=== PATIENT | female | born 1980 | race Caucasian/White ===

== ENCOUNTER 2018-12-28 08:16 | Inpatient (IN) | payer MEDICAID ==
[2018-12-28] MEDS: LACTATED RINGER'S 1,000 ML IV ×3 (08:20→16:20)
[2018-12-28] MEDS ORDERED: METHYLERGONOVINE 0.2 MG INJ IM ×2 (08:30→16:00)
[2018-12-28] MEDS ORDERED: CEFAZOLIN 2 GM/50 ML (PMX) 50 ML IVPB (08:30)
[2018-12-28] MEDS ORDERED: MISOPROSTOL 200 MCG TAB PR ×2 (08:30→16:00)
[2018-12-28] MEDS ORDERED: CARBOPROST 250 MCG INJ IM ×2 (08:30→16:00)
[2018-12-28] MEDS ORDERED: CEFAZOLIN 3 GM in DEXTROSE 5% 100 ML IV (09:00)
[2018-12-28] MEDS ORDERED: morphine SULFATE/PF (10 MG/10 ML) INJ ×2 (09:12→11:20)
[2018-12-28] MEDS ORDERED: FENTAnyl 50 MCG/ML VIAL (09:12)
[2018-12-28 09:15] LABS: ADD MAN DIFF? NO
[2018-12-28 09:18] LABS: WHITE BLOOD COUNT 8.5 10^3/ul (4.8-10.8)
[2018-12-28 09:18] LABS: BASOPHILS % 0.1 % (0.0-2.0); EOSINOPHILS # 0.2 10^3/ul (0.0-0.5); EOSINOPHILS % 2.2 % (0.0-7.0); HEMATOCRIT 38.4 % (37.0-47.0); HEMOGLOBIN 12.7 g/dl (12.0-16.0); LYMPHOCYTES # 1.9 10^3/ul (0.8-2.9); LYMPHOCYTES % 21.7 % (15.0-51.0); MEAN CORPUSCULAR HEMOGLOBIN 28.7 pg (29.0-33.0); MEAN CORPUSCULAR HGB CONC 33.1 g/dl (32.0-37.0); MEAN CORPUSCULAR VOLUME 86.9 fl (82.0-101.0); MEAN PLATELET VOLUME 9.2 fl (7.4-10.4); MONOCYTE # 0.6 10^3/ul (0.3-0.9); MONOCYTES % 6.5 % (0.0-11.0); NEUTROPHIL # 5.9 10^3/ul (1.6-7.5); PLATELET COUNT 252 10^3/UL (140-415); RED BLOOD COUNT 4.42 10^6/ul (4.20-5.40); RED CELL DISTRIBUTION WIDTH 13.6 % (11.5-14.5)
[2018-12-28 09:36] LABS: INR 0.86; PROTIME 11.8 Sec (11.9-14.9); PT RATIO 0.9
[2018-12-28 09:37] LABS: PARTIAL THROMBOPLASTIN TIME 27.1 Sec (23.0-35.0)
[2018-12-28] MEDS ORDERED: PHENYLephrine (100 MCG/ML) 10ML SYG (09:58)
[2018-12-28] MEDS ORDERED: ONDANSETRON 4 MG INJ ×2 (09:58→11:21)
[2018-12-28] MEDS ORDERED: DEXAMETHASONE 4 MG/ML 1 ML INJ ×2 (09:58→11:20)
[2018-12-28] MEDS ORDERED: HYDROmorphONE 0.5 MG/0.5 ML SYG IV ×2 (12:00)
[2018-12-28] MEDS ORDERED: DIPHENHYDRAMINE 50 MG INJ IV (12:00)
[2018-12-28] MEDS ORDERED: NALOXONE (0.4 MG/ML) INJ IV (12:00)
[2018-12-28] MEDS ORDERED: ONDANSETRON 4 MG INJ IV (12:00)
[2018-12-28] MEDS ORDERED: ZOLPIDEM 5 MG TAB PO (12:00)
[2018-12-28 12:04] LABS: HEPATITIS B SURFACE ANTIGEN NEGATIVE (NEGATIVE)
[2018-12-28] MEDS: OXYTOCIN 30 UNITS/LR 500 ML IV ×2 (12:55→16:39)
[2018-12-28 15:18] LABS: RAPID PLASMA REAGIN NONREACTIVE (NR)
[2018-12-28] MEDS ORDERED: NACL 0.9% 3 ML SYG IV (16:00)
[2018-12-28] MEDS ORDERED: NA PHOSPHATE/BIPHOS 133 ML ENEMA PR (16:00)
[2018-12-28] MEDS ORDERED: OXYTOCIN 30 UNITS/LR 500 ML IV (16:00)
[2018-12-28] MEDS: KETOROLAC 30 MG INJ IV (16:37)
[2018-12-29] MEDS: LACTATED RINGER'S 1,000 ML IV ×3 (00:20→16:20)
[2018-12-29] MEDS: OXYTOCIN 30 UNITS/LR 500 ML IV (02:49)
[2018-12-29] MEDS: KETOROLAC 30 MG INJ IV ×2 (03:59→10:17)
[2018-12-29 09:45] LABS: ADD MAN DIFF? NO
[2018-12-29 09:49] LABS: BASOPHILS % 0.1 % (0.0-2.0); EOSINOPHILS # 0.1 10^3/ul (0.0-0.5); EOSINOPHILS % 0.9 % (0.0-7.0); HEMATOCRIT 32.4 % (37.0-47.0); HEMOGLOBIN 10.6 g/dl (12.0-16.0); LYMPHOCYTES # 2.7 10^3/ul (0.8-2.9); LYMPHOCYTES % 26.2 % (15.0-51.0); MEAN CORPUSCULAR HGB CONC 32.7 g/dl (32.0-37.0); MEAN CORPUSCULAR VOLUME 88.5 fl (82.0-101.0); MEAN PLATELET VOLUME 9.2 fl (7.4-10.4); MONOCYTE # 0.9 10^3/ul (0.3-0.9); MONOCYTES % 9.3 % (0.0-11.0); NEUTROPHIL # 6.4 10^3/ul (1.6-7.5); NEUTROPHILS % 62.9 % (39.0-77.0); PLATELET COUNT 225 10^3/UL (140-415); RED BLOOD COUNT 3.66 10^6/ul (4.20-5.40); RED CELL DISTRIBUTION WIDTH 13.2 % (11.5-14.5)
[2018-12-29 09:49] LABS: WHITE BLOOD COUNT 10.1 10^3/ul (4.8-10.8)
[2018-12-29] MEDS: LANOLIN HPA 1 PKT TOP (10:17)
[2018-12-29] MEDS: HYDROCODONE/APAP (5/325) TAB PO (13:35)
[2018-12-29] MEDS: IBUPROFEN 800 MG TAB PO ×2 (14:00→17:35)
[2018-12-30] MEDS: LACTATED RINGER'S 1,000 ML IV (01:20)
[2018-12-30] MEDS: IBUPROFEN 800 MG TAB PO ×3 (05:44→21:24)
[2018-12-30] MEDS: HYDROCODONE/APAP (5/325) TAB PO (10:40)
[2018-12-31] MEDS: IBUPROFEN 800 MG TAB PO ×3 (06:16→22:09)
[2018-12-31] MEDS: MEASLES,MUMPS,RUBELLA VACCINE INJ SC* (09:00)
[2018-12-31] MEDS: HYDROCODONE/APAP (5/325) TAB PO (12:40)
[2018-12-31 15:27] LABS: ADD MAN DIFF? NO
[2018-12-31 15:29] LABS: WHITE BLOOD COUNT 7.4 10^3/ul (4.8-10.8)
[2018-12-31 15:30] LABS: BASOPHILS % 0.3 % (0.0-2.0); EOSINOPHILS # 0.3 10^3/ul (0.0-0.5); EOSINOPHILS % 3.8 % (0.0-7.0); HEMATOCRIT 34.4 % (37.0-47.0); HEMOGLOBIN 11.3 g/dl (12.0-16.0); LYMPHOCYTES # 2.2 10^3/ul (0.8-2.9); MEAN CORPUSCULAR HEMOGLOBIN 29.3 pg (29.0-33.0); MEAN CORPUSCULAR HGB CONC 32.8 g/dl (32.0-37.0); MEAN CORPUSCULAR VOLUME 89.1 fl (82.0-101.0); MEAN PLATELET VOLUME 8.6 fl (7.4-10.4); MONOCYTE # 0.6 10^3/ul (0.3-0.9); MONOCYTES % 7.9 % (0.0-11.0); NEUTROPHIL # 4.3 10^3/ul (1.6-7.5); NEUTROPHILS % 57.6 % (39.0-77.0); PLATELET COUNT 269 10^3/UL (140-415); RED BLOOD COUNT 3.86 10^6/ul (4.20-5.40); RED CELL DISTRIBUTION WIDTH 13.3 % (11.5-14.5)
[2018-12-31 15:50] LABS: INR 0.91; PROTIME 12.4 Sec (11.9-14.9)
[2018-12-31 15:51] LABS: PARTIAL THROMBOPLASTIN TIME 27.3 Sec (23.0-35.0)
[2018-12-31 15:53] LABS: ALANINE AMINOTRANSFERASE 25 IU/L (13-69); ALBUMIN 3.4 g/dl (3.3-4.9); ALBUMIN/GLOBULIN RATIO 0.97; ALKALINE PHOSPHATASE 105 IU/L (42-121); ANION GAP 10 (5-13); ASPARTATE AMINO TRANSFERASE 41 IU/L (15-46); BILIRUBIN,INDIRECT 0.2 mg/dl (0-1.1); BILIRUBIN,TOTAL 0.2 mg/dl (0.2-1.3); BLOOD UREA NITROGEN 7 mg/dl (7-20); CALCIUM 9.2 mg/dl (8.4-10.2); CARBON DIOXIDE 27 mmol/L (21-31); CHLORIDE 102 mmol/L (97-110); CREATININE 0.62 mg/dl (0.44-1.00); Estimated GFR > 60 mL/min (>60); GLUCOSE 91 mg/dl (70-220); POTASSIUM 4.2 mmol/L (3.5-5.1); SODIUM 139 mmol/L (135-144); TOTAL PROTEIN 6.9 g/dl (6.1-8.1); URIC ACID 5.7 mg/dl (3.1-7.9)
[2018-12-31 16:30] LABS: FIBRIN SPLIT PRODUCT <10 ug/ml (<10)
[2018-12-31] MEDS: DIPHTH/TET/ACEL PERTUSS (ADULT) 0.5 ML VIAL IM* (16:55)
[2018-12-31 17:11] LABS: ADD UMIC YES; UR ASCORBIC ACID NEGATIVE (NEGATIVE); UR BACTERIA FEW /HPF (NONE SEEN); UR BILIRUBIN (Dip) NEGATIVE (NEGATIVE); UR BLOOD (Dip) 3+ mg/dL (NEGATIVE); UR CLARITY SLIGHTLY CLOUDY (CLEAR); UR COLOR YELLOW (YELLOW); UR GLUCOSE (Dip) NEGATIVE (NEGATIVE); UR KETONES (Dip) NEGATIVE (NEGATIVE); UR LEUKOCYTE ESTERASE (Dip) NEGATIVE Leu/ul (NEGATIVE); UR MUCUS FEW /HPF (NONE SEEN); UR NITRITE (Dip) NEGATIVE (NEGATIVE); UR RBC > 182 /HPF (0-5); UR SPECIFIC GRAVITY (Dip) 1.016 (1.003-1.030); UR SQUAMOUS EPITHELIAL CELL FEW /HPF (FEW); UR TOTAL PROTEIN (Dip) NEGATIVE (NEGATIVE); UR UROBILINOGEN (Dip) NEGATIVE (NEGATIVE); UR WBC 9 /HPF (0-5)
[2019-01-01] MEDS: IBUPROFEN 800 MG TAB PO ×2 (06:17→14:10)
== END 2019-01-01 16:00 | disposition home or self-care (01) | DRG 788 ==
LOC: L-D 08:16 → PP1 14:55
PROVIDERS: Obstetrics & Gynecology
PROC: 10D00Z1 Extraction of Products of Conception, Low, Open Approach (ICD-10-PCS; principal; 2018-12-28 07:30)
DX: O34.211 Maternal care for low transverse scar from previous cesarean delivery (principal); Z3A.39 39 weeks gestation of pregnancy; Z37.0 Single live birth
CPT/HCPCS: 80053; 81001; 84560; 85025; 85362; 85384; 85610; 85730; 86592; 86850; 86900; 86901; 87340; 90686; 90715; 99464